=== PATIENT | male | born 1970 | race Caucasian/White ===

== ENCOUNTER → 2017-12-02 | Outpatient (CLI) | payer OTHER ==
[2017-12-02 10:28] LABS: BLOOD UREA NITROGEN 18 mg/dl (7-18); CARBON DIOXIDE 31 mmol/L (21-32); CREATININE 1.14 mg/dl (0.60-1.40); GLUCOSE 89 mg/dl (70-99); POTASSIUM 3.8 mmol/L (3.5-5.1); SODIUM 140 mmol/L (136-145)
[2017-12-02 10:32] LABS: CHOLESTEROL 195 mg/dl (0-200); LDL CHOLESTEROL CALCULATED 123 mg/dl
== END | disposition home or self-care (01) ==
LOC: C.LAB 08:07
PROVIDERS: ATTEND Nurse Practitioner Adult Health
DX: Z00.00 Encounter for general adult medical examination without abnormal findings (principal)